=== PATIENT | female | born 1970 | race African-American/Black ===

== ENCOUNTER 2022-04-06 14:27 | Emergency (ER) | payer MEDICAID, OTHER ==
[~2022-04-06] VITALS: Ht 177.8 cm; Wt 113.4 kg
[~2022-04-06 14:27] MED LIST: ASPIRIN; FERROUSSULFATE; FLAGYL; FOLIC ACID; HYDR-4277 PO; KCL; LOMOTIL; MENEST PO; OMEP20TA5 PO; SULFASALAZINE; WELLBUTRIN
[2022-04-06 14:57] LABS: HEMATOCRIT 28.3 % (31.2-41.9); MEAN CORPUSCULAR HEMOGLOBIN 33.1 uug (24.7-32.8); MEAN CORPUSCULAR VOLUME 97.8 fL (75.5-95.3); PLATELET COUNT (AUTO) 255 K/uL (179-408)
[2022-04-06 15:08] LABS: ACETAMINOPHEN < 10.0 ug/mL (10-30)
[2022-04-06 15:22] LABS: BILIRUBIN,DIRECT 0.1 mg/dL (0.0-0.2); BILIRUBIN,TOTAL 0.4 mg/dL (0.2-1.0); CREATININE 1.1 mg/dL (0.6-1.3); POTASSIUM 3.2 mmol/L (3.5-5.1); TOTAL PROTEIN, SERUM 7.6 g/dL (6.4-8.2)
[2022-04-06 15:27] LABS: ETHANOL < 3 MG/DL (0-0)
--- NOTE | 2022-04-06 16:02 | NUR ---
Social Work consult was requested for a patient in the emergency room for mental health, homeless and substance abuse resources. Patient is a 52-year-old black transgender female. Patient appears confused and disoriented. Patient was tangential and hyperverbal. Patient presents with poor insight and judgement. Patient states her primary contact is her sister Donita Amador ([phone]) and the patients [place] [address] [facility] [address]. SW was unable to ascertain the patients financial status. Patient states she is currently homeless, and ZACHERY provided the patient with homeless resources for [facility] [place] [address] [place] [address] ([phone]) and [facility] [address] [facility] [address] ([phone]). ZACHERY gave resources for [facility] [address] [place] [id number]. Patient was appreciative of the resources. Patient states she has a history of cocaine abuse. SW was unable to ascertain the last time the patient used cocaine. There is no toxicology report. ZACHERY provided the patient with substance abuse resources for [facility] [address] [facility] [address] ([phone]), [facility] [address] [facility] [address] ([phone]), and [facility] [address] [place] [address] ([phone]). Patient appeared unmotivated for treatment. Patient states she has a history of depression and anxiety. Patient states that she is currently having suicidal ideation because of currently being homeless. Patient states she is open to going to [facility]. ZACHERY faxed clinicals to [facility] ([phone]) and spoke with Nacho ([phone]). ZACHERY informed nurse, Briseyda, and Doctor Doyle.
[2022-04-06] MEDS ORDERED: POTASSIUM CHLORIDE 20 MEQ TAB.PRT.SR PO ONE (16:30)
[2022-04-06 17:48] LABS: *BILIRUBIN,URIN NEGATIVE (NEGATIVE); *BLOOD, URINE NEGATIVE (NEGATIVE); *CLARITY,URINE CLEAR (CLEAR); *COLOR,URINE YELLOW (YELLOW); *KETONES,URINE NEGATIVE (NEGATIVE); *UROBILINOGEN,URINE 0.2 E.U./dl (NORMAL); LEUKOCYTE ESTERASE ,URINE NEGATIVE (NEGATIVE); NITRITE, URINE NEGATIVE (NEGATIVE); PH,URINE 5.5 (5.0-8.0); UGLUCOSE NEGATIVE (NEGATIVE)
[2022-04-06 18:00] LABS: *AMPHETAMINE, URINE POSITIVE (NEGATIVE); *CANNABINOID, URINE NEGATIVE (NEGATIVE); *COCCAINE, URINE POSITIVE (NEGATIVE); *OPIATE, URINE NEGATIVE (NEGATIVE); *PHENCYCLIDINE SCREEN,URINE NEGATIVE (NEGATIVE)
[2022-04-06] MEDS ORDERED: POTASSIUM CHLORIDE 20 MEQ TAB.PRT.SR ONE (18:27)
--- NOTE | 2022-04-06 18:35 | NUR ---
Gave pt dinner tray.
--- NOTE | 2022-04-06 18:48 | NUR ---
refaxed labs again.
--- NOTE | 2022-04-06 19:22 | NUR ---
First contact. Received report at this time. Pt lying down resting with eyes closed. Resp even and unlabored.
--- NOTE | 2022-04-06 20:49 | NUR ---
Faxed Art ([facility] of [facility] phone [phone]/fax [phone]) pt's document that states patient is medically clear. Awaiting return phone call.
--- NOTE | 2022-04-06 23:25 | NUR ---
Patient discharged to [facility] in stable condition. Report given to PACO Chris. Pt's personal belongings given to transport mookie.Pt provided another sandwhich and snacks. Patient compliant with request. Pt also cleansed before leaving. Pt had incontinent episode of stool. Stressed follow up or return to ER for worsening s/s.
== END 2022-04-06 23:30 ==
LOC: ER 14:27
DX: R45.851 Suicidal ideations (principal); K50.90 Crohn's disease, unspecified, without complications; E87.6 Hypokalemia; D64.9 Anemia, unspecified; Z59.01 Sheltered homelessness; Z20.822 Contact with and (suspected) exposure to COVID-19; Z88.8 Allergy status to other drugs, medicaments and biological substances; F31.9 Bipolar disorder, unspecified; F20.9 Schizophrenia, unspecified; R82.5 Elevated urine levels of drugs, medicaments and biological substances
CPT/HCPCS: 36415; 83690; 85025; A4663; G0480

== ENCOUNTER 2022-11-21 19:02 | Emergency (ER) | payer OTHER ==
[~2022-11-21] VITALS: Ht 177.8 cm; Wt 97.5 kg
--- NOTE | 2022-11-21 21:54 | NUR ---
Patient was just triaged at this due to the ER being inudated with patient.
--- NOTE | 2022-11-21 22:00 | NUR ---
PT PLACED IN RM 4B VIA WC.
--- NOTE | 2022-11-21 22:20 | NUR ---
PT VOIDED 600 ML OF BLOODY URINE. SPECIMEN SENT TO LAB.
--- NOTE | 2022-11-21 22:45 | NUR ---
CHEST X RAY DONE AT BEDSIDE.
[2022-11-21] MEDS: IV NORMAL SALINE 1000 ML BAG IV ONE (23:00)
[2022-11-21 23:17] LABS: HEMATOCRIT 34.4 % (31.2-41.9); MEAN CORPUSCULAR HEMOGLOBIN 33.8 uug (24.7-32.8); PLATELET COUNT (AUTO) 296 K/uL (179-408)
[2022-11-21 23:26] LABS: *BILIRUBIN,URIN NEGATIVE (NEGATIVE); *BLOOD, URINE 3+ (NEGATIVE); *CLARITY,URINE CLOUDY (CLEAR); *COLOR,URINE DARK YELLOW (YELLOW); *KETONES,URINE NEGATIVE (NEGATIVE); *UROBILINOGEN,URINE 0.2 E.U./dl (NORMAL); LEUKOCYTE ESTERASE ,URINE NEGATIVE (NEGATIVE); NITRITE, URINE NEGATIVE (NEGATIVE); PH,URINE 5.5 (5.0-8.0); UGLUCOSE NEGATIVE (NEGATIVE)
[2022-11-21 23:31] LABS: BACTERIA,URINE FEW /HPF (NONE SEEN); SQUAMOUS EPITHELIAL CELL,UR FEW /HPF (NONE SEEN)
[2022-11-21 23:35] LABS: CARBON DIOXIDE 28 mmol/L (21-32); CHLORIDE 103 mmol/L (98-107); CREATININE 1.2 mg/dL (0.6-1.3); GLUCOSE 96 mg/dL (74-106); POTASSIUM 4.8 mmol/L (3.5-5.1); UREA NITROGEN, BLOOD 22 mg/dL (7-18)
--- NOTE | 2022-11-21 23:45 | NUR ---
Patient was found in room with IV out. Patient pulled out iv. Catheter intact and site benign. Pressure and 4x4 gauze applied to site. No bleeding noted.
[2022-11-21 23:47] LABS: ALANINE AMINOTRANSFERASE 22 U/L (14-59); ALKALINE PHOSPHATASE 84 U/L (50-136); ASPARTATE AMINOTRANSFERASE 14 U/L (15-37); BILIRUBIN,DIRECT 0.1 mg/dL (0.0-0.2); BILIRUBIN,TOTAL 0.1 mg/dL (0.2-1.0); LIPASE 51 U/L (73-393); TOTAL PROTEIN, SERUM 8.1 g/dL (6.4-8.2)
--- NOTE | 2022-11-21 23:52 | NUR ---
Patient does not wish to proceed with medical care recommended by (Melanie ). Patient given information related to possible complications, up to and including , which could occur as a result of leaving the hospital at this time. Patient verbalizes understanding of risks involved due to leaving against medical advice. Patient refused AMA form.
== END 2022-11-22 00:07 | disposition left against medical advice (07) ==
LOC: ER 19:02 → EDSEX 19:02 → ER 11-22 00:07
DX: K92.2 Gastrointestinal hemorrhage, unspecified (principal); R04.2 Hemoptysis; K50.90 Crohn's disease, unspecified, without complications; R07.89 Other chest pain; I27.82 Chronic pulmonary embolism; F17.210 Nicotine dependence, cigarettes, uncomplicated; Z88.8 Allergy status to other drugs, medicaments and biological substances; Z79.82 Long term (current) use of aspirin; Z79.899 Other long term (current) drug therapy; Z20.822 Contact with and (suspected) exposure to COVID-19
CPT/HCPCS: 99285; 71045; 87426; 80076; 80048; 81001; 83690; 85025; 85730; 86850; 86900; 86901; 84484; 36415; 93005; J7040; A4663

== ENCOUNTER 2024-07-01 17:18 | Inpatient (IN) | payer OTHER ==
[~2024-07-01] VITALS: Ht 175.3 cm; Wt 78.0 kg
[~2024-07-01 17:18] MED LIST changes: -FERROUSSULFATE; +FERROUSSULFATE PO; -FOLIC ACID; +FOLIC ACID PO; -LOMOTIL; +LOMOTIL PO
[2024-07-01] MEDS: GABAPENTIN 300 MG CAPSULE PO SCH (18:30)
[2024-07-01] MEDS: ENOXAPARIN SODIUM 40 MG/0.4 ML DISP.SYRIN SQ SCH (18:30)
[2024-07-01] MEDS ORDERED: REMEDY ESSENTIAL ZINC PASTE 113 GM TP PRN (18:30)
[2024-07-01] MEDS ORDERED: ACETAMINOPHEN 325 MG TABLET PO PRN (18:30)
[2024-07-01] MEDS ORDERED: ONDANSETRON 4 MG/2 ML VIAL IV PRN (18:30)
[2024-07-01] MEDS ORDERED: MAGNESIUM HYDROXIDE 30 ML LIQUID UDC PO PRN (18:30)
[2024-07-01] MEDS: PIPERACILLIN SODIUM/TAZOBACTAM 3.375 G in IV DEXTROSE 5% 50 ML IV SCH (18:45)
[2024-07-01] MEDS: IV LACTATED RINGERS SOLUTION 1,000 ML IV SCH (18:45)
[2024-07-01] MEDS: DOCUSATE SODIUM 250 MG CAPSULE PO SCH (20:48)
[2024-07-01] MEDS: HYDROMORPHONE 2 MG/1 ML DISP.SYRIN IV PRN (23:28)
[2024-07-01] MEDS: diphenhydrAMINE 50 MG/1 ML VIAL IV PRN (23:30)
[2024-07-02 00:27] VITALS: BP 137/85; TEMP 98.2; O2SAT 100
[2024-07-02 06:16] VITALS: BP 131/78; TEMP 97.7; O2SAT 96
[2024-07-02] MEDS: PANTOPRAZOLE SODIUM 40 MG TABLET.DR PO SCH (06:23)
[2024-07-02] MEDS ORDERED: VANCOMYCIN IV 200 ML ONE (06:27)
[2024-07-02] MEDS: VANCOMYCIN IV 1,000 MG in IV DEXTROSE 5% 250 ML IV ONE (06:36)
[2024-07-02 12:00] VITALS: BP 142/87; TEMP 97.8; O2SAT 97
[2024-07-02] MEDS ORDERED: LISI-782 PO (12:10)
[2024-07-02] MEDS ORDERED: APIX2.5T PO (12:10)
[2024-07-02] MEDS ORDERED: CHOL-35 PO (12:10)
[2024-07-02] MEDS ORDERED: MESA800T9 PO (12:10)
[2024-07-02] MEDS ORDERED: QUET150T2 PO (12:10)
[2024-07-02] MEDS ORDERED: CYAN100T44 PO (12:10)
[2024-07-02] MEDS ORDERED: PANT40TA2 PO (12:10)
[2024-07-02] MEDS ORDERED: POTA10CA43 PO (12:10)
[2024-07-02] MEDS ORDERED: BUPR150T5 PO (12:10)
[2024-07-02] MEDS ORDERED: PRED20TA PO (12:10)
[2024-07-02] MEDS ORDERED: HYDR-3980 PO (14:40)
[2024-07-02 14:46] LABS: BASOPHILS % (AUTO) 0.5 % (0.0-2.0); EOSINOPHILS # (AUTO) 0.2 K/uL (0.0-0.7); EOSINOPHILS % (AUTO) 1.8 % (0.0-7.0); HEMOGLOBIN 9.4 g/dL (10.9-14.3); LYMPHOCYTES # (AUTO) 1.7 K/uL (0.8-4.8); LYMPHOCYTES % (AUTO) 18.2 % (20.5-51.5); MEAN CORPUSCULAR HEMOGLOBIN 33.2 uug (24.7-32.8); MEAN CORPUSCULAR HGB CONC 34 g/dL (32.3-35.6); MEAN CORPUSCULAR VOLUME 98.7 fL (75.5-95.3); MONOCYTES # (AUTO) 0.8 K/uL (0.1-1.30); MONOCYTES % (AUTO) 8.5 % (0.0-11.0); NEUTROPHILS # (AUTO) 6.6 K/uL (1.8-8.9); PLATELET COUNT (AUTO) 461 K/uL (179-408); RED BLOOD CELL COUNT(AUTO) 2.84 MIL/uL (3.63-4.92); RED CELL DISTRIBUTION WIDTH 15.7 % (12.3-17.7); WHITE BLOOD COUNT (AUTO) 9.2 K/uL (3.8-11.8)
[2024-07-02 14:47] LABS: DIFFERENTIAL COMMENT 1
[2024-07-02 14:59] LABS: MAGNESIUM 1.7 mg/dL (1.8-2.4); PHOSPHOROUS 2.8 mg/dL (2.5-4.9); POTASSIUM 3.7 mmol/L (3.5-5.1)
[2024-07-02 15:15] LABS: CALCIUM 8.2 mg/dL (8.5-10.1)
[2024-07-02] MEDS: LIDOCAINE 2%-EPI 1:100,000 20 ML VIAL TP STA (15:18)
[2024-07-02] MEDS: HYDROMORPHONE 1 MG/1 ML DISP.SYRIN IV STA (15:18)
[2024-07-02 19:30] VITALS: BP 116/70; TEMP 97.7; O2SAT 96
[2024-07-02] MEDS: PIPERACILLIN SODIUM/TAZOBACTAM 3.375 G in IV DEXTROSE 5% 50 ML IV SCH (20:42)
[2024-07-02] MEDS: QUETIAPINE FUMARATE 100 MG TABLET PO SCH (20:42)
[2024-07-02] MEDS: PANTOPRAZOLE SODIUM 40 MG VIAL IV ONE (22:12)
[2024-07-02] MEDS: VANCOMYCIN IV 1,250 MG in IV DEXTROSE 5% 250 ML IV ONE (22:35)
[2024-07-03] MEDS: CHOLECALCIFEROL 1,000 UNIT TABLET PO SCH (08:26)
[2024-07-03] MEDS: CYANOCOBALAMIN 100 MCG TABLET PO SCH (08:26)
[2024-07-03] MEDS: buPROPion SR 150 MG TABLET.SA PO SCH (08:26)
[2024-07-03] MEDS: LISINOPRIL 5 MG TABLET PO SCH (08:30)
[2024-07-03] MEDS: APIXABAN 2.5 MG TABLET PO SCH (09:58)
[2024-07-03] MEDS: MESALAMINE 400 MG CAPSULE.DR PO SCH (09:59)
[2024-07-03 11:47] VITALS: BP 130/79; TEMP 97.9; O2SAT 96
[2024-07-03] MEDS: POTASSIUM CHLORIDE 10 MEQ TAB.PRT.SR PO SCH (12:36)
[2024-07-03] MEDS: VANCOMYCIN IV 1,250 MG in IV DEXTROSE 5% 250 ML IV SCH (15:31)
[2024-07-03 15:54] VITALS: BP 107/55; TEMP 98.7; O2SAT 98
[2024-07-03] MEDS: PROTEIN SUPPLEMENT (PROSTAT) 30 ML LIQUID PO SCH (17:35)
[2024-07-03 20:00] VITALS: TEMP 98.8
[2024-07-04 04:00] VITALS: TEMP 97.8
[2024-07-04 10:02] LABS: BASOPHILS % (AUTO) 0.7 % (0.0-2.0); EOSINOPHILS # (AUTO) 0.2 K/uL (0.0-0.7); EOSINOPHILS % (AUTO) 3.3 % (0.0-7.0); HEMATOCRIT 28.8 % (31.2-41.9); HEMOGLOBIN 9.5 g/dL (10.9-14.3); LYMPHOCYTES # (AUTO) 1.9 K/uL (0.8-4.8); LYMPHOCYTES % (AUTO) 26.4 % (20.5-51.5); MEAN CORPUSCULAR HEMOGLOBIN 33.8 uug (24.7-32.8); MEAN CORPUSCULAR HGB CONC 33 g/dL (32.3-35.6); MEAN CORPUSCULAR VOLUME 102.5 fL (75.5-95.3); MONOCYTES # (AUTO) 0.5 K/uL (0.1-1.30); MONOCYTES % (AUTO) 7.1 % (0.0-11.0); NEUTROPHILS # (AUTO) 4.5 K/uL (1.8-8.9); NEUTROPHILS % (AUTO) 62.5 % (38.5-71.5); PLATELET COUNT (AUTO) 345 K/uL (179-408); RED BLOOD CELL COUNT(AUTO) 2.81 MIL/uL (3.63-4.92); RED CELL DISTRIBUTION WIDTH 15.9 % (12.3-17.7); WHITE BLOOD COUNT (AUTO) 7.1 K/uL (3.8-11.8)
[2024-07-04 10:35] LABS: CALCIUM 8.3 mg/dL (8.5-10.1); MAGNESIUM 1.9 mg/dL (1.8-2.4); PHOSPHOROUS 2.9 mg/dL (2.5-4.9); POTASSIUM 4.1 mmol/L (3.5-5.1)
[2024-07-04 10:42] LABS: DIFFERENTIAL COMMENT 1
[2024-07-04] MEDS ORDERED: CLINDAMYCIN PHOSPHATE IV 900 MG in IV DEXTROSE 5% 50 ML IV SCH (14:00)
[2024-07-04] MEDS: CLINDAMYCIN PHOSPHATE IV 900 MG in IV DEXTROSE 5% 50 ML IV SCH (14:25)
[2024-07-04] MEDS: CALCIUM CARBONATE 500 MG TAB.CHEW PO PRN (15:22)
[2024-07-04] MEDS: CEFEPIME HCL 2 GM in IV DEXTROSE 5% 100 ML IV SCH (15:23)
[2024-07-04 16:09] VITALS: BP 138/87; TEMP 97.8; O2SAT 98
[2024-07-04] MEDS: FAMOTIDINE 20 MG TABLET PO ONE ×2 (23:37→23:38)
[2024-07-05 07:10] VITALS: BP 120/64; TEMP 97.8; O2SAT 97
[2024-07-05 08:00] VITALS: BP 119/83; TEMP 98.2; O2SAT 98
[2024-07-05 09:45] LABS: BASOPHILS % (AUTO) 0.6 % (0.0-2.0); EOSINOPHILS # (AUTO) 0.3 K/uL (0.0-0.7); EOSINOPHILS % (AUTO) 3.8 % (0.0-7.0); HEMATOCRIT 27.8 % (31.2-41.9); HEMOGLOBIN 9.4 g/dL (10.9-14.3); LYMPHOCYTES # (AUTO) 1.8 K/uL (0.8-4.8); LYMPHOCYTES % (AUTO) 23.7 % (20.5-51.5); MEAN CORPUSCULAR HEMOGLOBIN 33.5 uug (24.7-32.8); MEAN CORPUSCULAR HGB CONC 34 g/dL (32.3-35.6); MEAN CORPUSCULAR VOLUME 98.6 fL (75.5-95.3); MONOCYTES # (AUTO) 0.6 K/uL (0.1-1.30); MONOCYTES % (AUTO) 7.5 % (0.0-11.0); NEUTROPHILS # (AUTO) 4.8 K/uL (1.8-8.9); NEUTROPHILS % (AUTO) 64.4 % (38.5-71.5); PLATELET COUNT (AUTO) 445 K/uL (179-408); RED BLOOD CELL COUNT(AUTO) 2.82 MIL/uL (3.63-4.92); RED CELL DISTRIBUTION WIDTH 16.2 % (12.3-17.7); WHITE BLOOD COUNT (AUTO) 7.4 K/uL (3.8-11.8)
[2024-07-05 09:50] LABS: DIFFERENTIAL COMMENT 1
[2024-07-05 10:02] LABS: CALCIUM 8.8 mg/dL (8.5-10.1); CREATININE 1.1 mg/dL (0.6-1.3); MAGNESIUM 1.7 mg/dL (1.8-2.4); PHOSPHOROUS 3.3 mg/dL (2.5-4.9); POTASSIUM 4.2 mmol/L (3.5-5.1)
[2024-07-05 12:00] VITALS: BP 122/67; TEMP 98.7; O2SAT 99
[2024-07-05] MEDS: ASCORBIC ACID 500 MG TABLET PO SCH (15:23)
[2024-07-05] MEDS: ZINC SULFATE 220 MG CAPSULE PO SCH (15:23)
[2024-07-05 16:00] VITALS: BP 123/59; TEMP 98.3; O2SAT 97
[2024-07-05 19:00] VITALS: BP 130/63; TEMP 98.6; O2SAT 97
[2024-07-06 06:00] VITALS: BP 123/83; TEMP 98.2; O2SAT 95
[2024-07-06 12:00] VITALS: BP 142/82; TEMP 97.9; O2SAT 97
[2024-07-06] MEDS ORDERED: CLIN300C12 PO (13:19)
[2024-07-06] MEDS: HYDROMORPHONE 2 MG/1 ML DISP.SYRIN IV PRN (14:32)
[2024-07-06] MEDS: diphenhydrAMINE 50 MG/1 ML VIAL IV PRN (14:32)
[2024-07-06] MEDS ORDERED: NEOMY/BACITRAC/POLYMI OINT 28.35 GM TUBE TOP SCH (17:00)
== END 2024-07-06 15:35 | disposition home or self-care (01) | DRG 710 ==
LOC: MEDSURG3 17:18
PROVIDERS: ADMIT Nurse Practitioner Acute Care; ATTEND Nurse Practitioner Acute Care
PROC: 0J990ZZ Drainage of Buttock Subcutaneous Tissue and Fascia, Open Approach (ICD-10-PCS; principal; 2024-07-02)
DX: A41.9 Sepsis, unspecified organism (principal); E87.20 Acidosis, unspecified; K60.30 Anal fistula, unspecified; L02.31 Cutaneous abscess of buttock; K50.913 Crohn's disease, unspecified, with fistula; F64.0 Transsexualism; Z86.711 Personal history of pulmonary embolism; Z86.718 Personal history of other venous thrombosis and embolism; K57.30 Diverticulosis of large intestine without perforation or abscess without bleeding; I10 Essential (primary) hypertension; K42.9 Umbilical hernia without obstruction or gangrene; Z88.8 Allergy status to other drugs, medicaments and biological substances; Z59.01 Sheltered homelessness
CPT/HCPCS: 36415; 83735; 84100; 85025; A4663; A6209; A6213; G0378; J0692; J1171; J1200; J1650; J2470; J2543; J3370; J3490; J7040; J7050; J7120